=== PATIENT | male | born 1990 | race Caucasian/White ===

== ENCOUNTER 2019-11-28 14:37 | Emergency (ER) | payer SELFPAY ==
[2019-11-28] MEDS ORDERED: Ketorolac 30 MG/ML SDV IVPUSH ONE (14:55)
[2019-11-28] MEDS ORDERED: Ketorolac 30 MG/ML SDV ONE (14:57)
--- NOTE | 2019-11-28 15:34 | EDM.PDOC ---
ED HPI GENERAL MEDICAL PROBLEM - General Chief Complaint: Chest Pain Stated Complaint: CHEST PAINS Time Seen by Provider: 11/28/19 15:10 Source of Information: Reports: Patient History Limitations: Reports: No Limitations - History of Present Illness INITIAL COMMENTS - FREE TEXT/NARRATIVE: Patient presented to the ED because of left sided pleuritic pain which started 3 days ago. The pain is sharp,4/10, denies any N/V or diaphoresis. He has a dry cough x 4 days which is non-productive and denies any fever or chills. Left Chest Pain Score (Numeric/FACES): 4 - Related Data Allergies Allergy/AdvReac Type Severity Reaction Status Date / Time seasonal Allergy Sneezing Uncoded 11/28/19 15:01 Home Meds: Home Meds Ibuprofen [Motrin] 800 mg PO TID PRN #30 tablet 11/28/19 [Rx] traMADol [Ultram] 100 mg PO TID #15 tab 11/28/19 [Rx] Past Medical History Musculoskeletal History: Reports: Other (See Below) Other Musculoskeletal History: L5 fracture [id number] Psychiatric History: Reports: Other (See Below) Other Psychiatric History: states that he had hx of anxiety and depression but got that under controlled. Not taking meds for it anymore and not seeing anybody for it. - Past Surgical History Musculoskeletal Surgical History: Reports: Other (See Below) Other Musculoskeletal Surgeries/Procedures:: states that he had a knee scope. Social & Family History - Family History Family Medical History: Noncontributory - Tobacco Use Smoking Status *Q: Current Every Day Smoker Years of Tobacco use: 9 Packs/Tins Daily: 0.2 - Caffeine Use Caffeine Use: Reports: Coffee, Energy Drinks, Soda - Alcohol Use Days Per Week of Alcohol Use: 3 Number of Drinks Per Day: 24 Total Drinks Per Week: 72 - Recreational Drug Use Recreational Drug Use: Yes Recreational Drug Type: Reports: Marijuana/Hashish ED ROS GENERAL - Review of Systems Review Of Systems: See Below Constitutional: Reports: No Symptoms Respiratory: Reports: Pleuritic Chest Pain, Cough. Denies: Sputum Cardiovascular: Reports: No Symptoms Endocrine: Reports: No Symptoms GI/Abdominal: Reports: No Symptoms : Reports: No Symptoms Musculoskeletal: Reports: No Symptoms Skin: Reports: No Symptoms Neurological: Reports: No Symptoms Psychiatric: Reports: No Symptoms ED EXAM, GENERAL - Physical Exam Exam: See Below Exam Limited By: No Limitations General Appearance: Alert, No Apparent Distress Eye Exam: Bilateral Eye: PERRL Ears: Normal External Exam Nose: Normal Inspection, Normal Mucosa Throat/Mouth: Normal Inspection, Normal Lips, Normal Teeth Head: Atraumatic, Normocephalic Neck: Normal Inspection, Supple, Non-Tender, Full Range of Motion Respiratory/Chest: No Respiratory Distress, Lungs Clear, Normal Breath Sounds Cardiovascular: Normal Peripheral Pulses, Regular Rate, Rhythm, No Edema, No Gallop, No JVD, No Murmur GI/Abdominal: Normal Bowel Sounds, Soft, Non-Tender, No Organomegaly Back Exam: Normal Inspection, Full Range of Motion Extremities: Normal Inspection, Normal Range of Motion Course - Vital Signs Text/Narrative:: Labs/EKG/CXR was discussed with patient and verbalized full understanding Zeus took 324 mg ASA this morning Toradol 30 mg IV x1 Last Recorded V/S: Last Vital Signs Temp 36.8 C 11/28/19 15:00 Pulse 89 11/28/19 15:00 Resp 17 11/28/19 15:00 BP 186/101 H 11/28/19 15:00 Pulse Ox 100 11/28/19 15:00 - Orders/Labs/Meds Orders: Active Orders 24 hr Category Date Time Status Chest 1V Frontal [CR] Stat Exams 11/28/19 14:56 Taken D-DIMER QUANTITATIVE [COAG] Stat Lab 11/28/19 15:03 Received Labs: Laboratory Tests 11/28/19 11/28/19 11/28/19 Range/Units 15:03 15:03 15:03 WBC 8.9 (4.5-12.0) X10-3/uL RBC 4.78 (4.30-5.75) x10(6)uL Hgb 13.9 (13.5-17.8) g/dL Hct 41.6 (30.0-51.3) % MCV 87.1 (80-96) fL MCH 29.2 (27.7-33.6) pg MCHC 33.5 (32.2-35.4) g/dL RDW 11.8 (11.5-15.5) % Plt Count 356 (125-369) X10(3)uL MPV 6.8 L (7.4-10.4) fL Neut % (Auto) 66.7 (46-82) % Lymph % (Auto) 23.5 (13-37) % [place] % (Auto) 8.3 (4-12) % Eos % (Auto) 1 (1.0-5.0) % Baso % (Auto) 0 (0-2) % Neut # (Auto) 6.0 (1.6-8.3) # Lymph # (Auto) 2.1 (0.6-5.0) # [place] # (Auto) 0.7 (0.0-1.3) # Eos # (Auto) 0.1 (0.0-0.8) # Baso # (Auto) 0.0 (0.0-0.2) # Sodium 141 (135-145) mmol/L Potassium 3.8 (3.5-5.3) mmol/L Chloride 104 (100-110) mmol/L Carbon Dioxide 27 (21-32) mmol/L BUN 10 (7-18) mg/dL Creatinine 0.8 (0.70-1.30) mg/dL Est Cr Clr Drug Dosing TNP Estimated GFR (MDRD) > 60 (>60) BUN/Creatinine Ratio 12.5 (9-20) Glucose 105 (80-116) mg/dL Calcium 8.6 (8.6-10.2) mg/dL Total Bilirubin 0.5 (0.1-1.3) mg/dL AST 22 (5-25) IU/L ALT 58 H (12-36) U/L Alkaline Phosphatase 50 L (56-112) IU/L Troponin I 5.6 (4.0-60.3) pg/mL Total Protein 7.2 (6.0-8.0) g/dL Albumin 4.1 (3.5-5.2) g/dL Globulin 3.1 g/dL Albumin/Globulin Ratio 1.3 Meds: Medications Discontinued Medications Generic Name Dose Route Start Last Admin Trade Name Freq PRN Reason Stop Dose Admin Ketorolac Tromethamine 30 mg 11/28/19 14:55 11/28/19 14:56 Toradol IVPUSH 11/28/19 14:56 30 mg ONETIME ONE Administration Ketorolac Tromethamine Confirm 11/28/19 14:57 11/28/19 15:05 Toradol Administered 11/28/19 14:58 Not Given Dose 30 mg .ROUTE .STK-MED ONE Departure - Departure Time of Disposition: 16:00 Disposition: Home, Self-Care 01 Condition: Good Clinical Impression: Costochondral chest pain Prescriptions: Ibuprofen [Motrin] 800 mg PO TID PRN #30 tablet PRN Reason: Pain traMADol [Ultram] 100 mg PO TID #15 tab Referrals: PCP,None [Primary Care Provider] - Additional Instructions: Please read discharge instructions on chest wall pain/costochondritis Take ASA 81 mg daily for 7 days Tramadol 100 mg with Ibuprofen 800 mg 3 times daily as needed for pain. Take them both at the same time for better pain relief. Follow up if symptoms persist Sepsis Event Note (ED) - Evaluation Sepsis Screening Result: No Definite Risk - Focused Exam Vital Signs: Vital Signs Temp Pulse Resp BP Pulse Ox 11/28/19 15:00 36.8 C 89 17 186/101 H 100 - My Orders Last 24 Hours: My Active Orders 11/28/19 14:56 Chest 1V Frontal [CR] Stat 11/28/19 15:03 D-DIMER QUANTITATIVE [COAG] Stat - Assessment/Plan Last 24 Hours: My Active Orders 11/28/19 14:56 Chest 1V Frontal [CR] Stat 11/28/19 15:03 D-DIMER QUANTITATIVE [COAG] Stat
== END 2019-11-28 15:55 | disposition home or self-care (01) ==
LOC: FB.ED 14:37
DX: R07.89 Other chest pain (principal); F17.210 Nicotine dependence, cigarettes, uncomplicated; Z91.048 Other nonmedicinal substance allergy status
CPT/HCPCS: 36415; 71045; 80053; 84484; 85025; 85379; 93005; 96374; 99285; J1885